=== PATIENT | male | born 1965 | race African-American/Black ===

== ENCOUNTER 2017-10-08 06:52 | Emergency (ER) | payer OTHER ==
[~2017-10-08] VITALS: Ht 182.9 cm; Wt 83.0 kg
[2017-10-08 06:54] VITALS: BP 180/100
[2017-10-08] MEDS ORDERED: HYDROcodone/APAP 5/325 TABLET PO ONE (07:30)
[2017-10-08] MEDS ORDERED: HYDROcodone/APAP 5/325 TABLET ONE (07:32)
== END 2017-10-08 08:49 | disposition home or self-care (01) ==
LOC: ED 08:35
DX: M79.671 Pain in right foot (principal); M21.611 Bunion of right foot
CPT/HCPCS: 99284